=== PATIENT | female | born 1970 ===

== ENCOUNTER 2020-09-18 06:00 | Day surgery (SDC) | payer OTHER ==
[~2020-09-18 06:00] MED LIST: PRILOSEC PO; PROBIOTIC PO
[2020-09-18] MEDS ORDERED: RECTICARE30 GM TOP (09:40)
[2020-09-18] MEDS ORDERED: PERCOCET 5-3251 EACH PO (09:40)
== END 2020-09-18 14:19 | disposition home or self-care (01) ==
LOC: CIR.AMB 06:00
PROVIDERS: ATTEND Surgery
DX: D12.8 Benign neoplasm of rectum (principal); Z20.828 Contact with and (suspected) exposure to other viral communicable diseases